=== PATIENT | male | born 2005 | race Caucasian/White ===

== ENCOUNTER 2024-07-30 06:30 | Emergency (ER) | payer BC ==
[2024-07-30] MEDS: Tetracaine HCl/PF 0.5% 4 ML Bottle EYEBOTH ONE (07:58)
[2024-07-30] MEDS: Fluorescein 1 MG Ophth Strip EYEBOTH ONE (07:58)
== END 2024-07-30 08:41 | disposition home or self-care (01) ==
LOC: MW.ED 06:30
DX: H16.133 Photokeratitis, bilateral (principal); Z88.0 Allergy status to penicillin
CPT/HCPCS: 99283; J3490